=== PATIENT | female | born 1950 | race Caucasian/White ===

== ENCOUNTER → 2016-08-07 | Outpatient (CLI) | payer MEDICARE, OTHER ==
[~2016-08-07] MED LIST: AMBIEN 10MG10 MG PO; FLONASE NASAL S16 GM NS; LEVAQUIN 5500 MG/TA1 PO; MIRALAX PA17 GM/Dose PO; NORCO 325 MG-51 TAB PO; PREDNISONE20 MG PO; PROTONIX 40MG T40 MG PO; RT ADVAIR 228 DISKUS IH; SINGULAIR 110 MG/TAB PO; SYNTHROID0.112 MG/T PO; VENTOLIN0.09 MG IH
== END ==
LOC: MC.RAD 08:10
DX: N63 Unspecified lump in breast (principal)

== ENCOUNTER → 2017-01-20 | Outpatient (CLI) | payer MEDICARE, OTHER | LOC: MC.RAD 14:12 | DX: Z12.31 Encounter for screening mammogram for malignant neoplasm of breast (principal) ==

== ENCOUNTER → 2017-05-18 | Outpatient (CLI) | payer MEDICARE, OTHER ==
[2017-05-18 12:07] LABS: HEMATOCRIT 38.8 % (37.0-47.0); HEMOGLOBIN 13.2 g/dl (12.5-16.0); MEAN CELL VOLUME 99 fl (80.0-100.0); MEAN CORPUSCULAR HEMOGLOBIN 34 pg (27.0-31.0); MEAN CORPUSCULAR HGB CONC 34 g/dl (33.0-37.0); MEAN PLATELET VOLUME 10.1 fl (7.4-10.4); PLATELET COUNT 235 K/mm3 (130-400); RED BLOOD COUNT 3.94 M/mm3 (4.10-5.30); REDCELL DISTRIBUTION WIDTH-CV 12.4 % (11.5-14.5)
[2017-05-18 12:27] LABS: ERYTHROCYTE SEDIMENTATION RATE 5 mm/hr (0-30)
== END ==
LOC: COL.LAB 10:32
PROVIDERS: Orthopaedic Surgery
DX: M25.562 Pain in left knee (principal); Z96.652 Presence of left artificial knee joint

== ENCOUNTER → 2017-06-04 | Outpatient (CLI) | payer MEDICARE | LOC: COL.RAD 12:39 | DX: M25.552 Pain in left hip (principal); M25.551 Pain in right hip; M54.5 Low back pain | CPT/HCPCS: G0260; J3301 ==

== ENCOUNTER → 2017-06-18 | Outpatient (CLI) | payer MEDICARE | LOC: COL.RAD 12:22 | DX: M54.5 Low back pain (principal) | CPT/HCPCS: G0260; J3301 ==

== ENCOUNTER → 2017-09-04 | Outpatient (CLI) | payer MEDICARE | LOC: COL.RAD 07:07 | DX: M25.551 Pain in right hip (principal); M25.552 Pain in left hip; M54.5 Low back pain | CPT/HCPCS: G0260; J3301 ==

== ENCOUNTER 2017-10-02 14:00 | Outpatient (RCR) | payer MEDICARE, OTHER | END 2017-10-04 | disposition home or self-care (01) | LOC: WSPT | DX: Z47.1 Aftercare following joint replacement surgery (principal); Z96.651 Presence of right artificial knee joint | CPT/HCPCS: G0283-GP; G8978-GP; G8979-GP ==

== ENCOUNTER 2017-10-09 14:00 | Outpatient (RCR) | payer MEDICARE, OTHER ==
[~2017-10-09 14:00] MED LIST changes: -FLONASE NASAL S16 GM NS; +FLONASEALLERGY NS
[2017-10-12] MEDS ORDERED: LOTENSIN HCT 201 TA1 PO (11:39)
[2017-10-12] MEDS ORDERED: LASIX 20MG TABL20 MG PO (11:39)
[2017-10-12] MEDS ORDERED: D-2000 90 MG-201 TAB PO (11:40)
[2017-10-12] MEDS ORDERED: FOLIC ACID 40400 MCG PO (11:41)
[2017-10-12] MEDS ORDERED: MULTI VITAMINS1 TAB PO (11:41)
[2017-10-12] MEDS ORDERED: VITAMINC1000TA PO (11:42)
[2017-10-12] MEDS ORDERED: PROFE180 MG PO (11:44)
[2017-10-12] MEDS ORDERED: DESYREL 50MG50 MG PO (11:45)
[2017-10-12] MEDS ORDERED: NATURAL MAGNES200 MG PO (12:11)
== END 2017-10-20 10:58 | disposition home or self-care (01) ==
LOC: WSPT 14:00
DX: Z47.1 Aftercare following joint replacement surgery (principal); Z96.651 Presence of right artificial knee joint

== ENCOUNTER 2017-10-12 10:26 | Day surgery (SDC) | payer MEDICARE ==
[~2017-10-12] VITALS: Ht 167.6 cm; Wt 76.1 kg
[2017-10-12] VITALS (9 sets, daily range): BP systolic 132–162; BP diastolic 50–78; PULSE 88–105; TEMP 97.4–98.5
[2017-10-12] MEDS ORDERED: LOTENSIN HCT 201 TA1 PO (11:39)
[2017-10-12] MEDS ORDERED: LASIX 20MG TABL20 MG PO (11:39)
[2017-10-12] MEDS ORDERED: D-2000 90 MG-201 TAB PO (11:40)
[2017-10-12] MEDS ORDERED: MULTI VITAMINS1 TAB PO (11:41)
[2017-10-12] MEDS ORDERED: FOLIC ACID 40400 MCG PO (11:41)
[2017-10-12] MEDS ORDERED: VITAMINC1000TA PO (11:42)
[2017-10-12] MEDS ORDERED: PROFE180 MG PO (11:44)
[2017-10-12] MEDS ORDERED: DESYREL 50MG50 MG PO (11:45)
[2017-10-12] MEDS ORDERED: NATURAL MAGNES200 MG PO (12:11)
[2017-10-13 04:13] VITALS: BP 116/53; PULSE 76; TEMP 97.9
[2017-10-13 07:59] VITALS: BP 117/54; PULSE 73; TEMP 98.1
[2017-10-13 11:30] VITALS: BP 121/51; PULSE 82; TEMP 98.3
[2017-10-13 14:56] VITALS: BP 124/53; PULSE 83; TEMP 97.9
== END 2017-10-13 16:00 | disposition home or self-care (01) ==
LOC: SDCO 10:26 → SURG 16:15 → SDCO 10-13 16:00
DX: C50.911 Malignant neoplasm of unspecified site of right female breast (principal); E03.9 Hypothyroidism, unspecified; G43.909 Migraine, unspecified, not intractable, without status migrainosus; G89.29 Other chronic pain; E78.5 Hyperlipidemia, unspecified; F32.9 Major depressive disorder, single episode, unspecified; I10 Essential (primary) hypertension; J45.909 Unspecified asthma, uncomplicated; M19.90 Unspecified osteoarthritis, unspecified site; Z17.0 Estrogen receptor positive status [ER+]; Z79.51 Long term (current) use of inhaled steroids; Z85.828 Personal history of other malignant neoplasm of skin; Z90.710 Acquired absence of both cervix and uterus; Z90.49 Acquired absence of other specified parts of digestive tract; Z96.653 Presence of artificial knee joint, bilateral; Z88.5 Allergy status to narcotic agent; Z88.8 Allergy status to other drugs, medicaments and biological substances; Z88.6 Allergy status to analgesic agent; Z80.3 Family history of malignant neoplasm of breast; Z80.0 Family history of malignant neoplasm of digestive organs; Z82.49 Family history of ischemic heart disease and other diseases of the circulatory system
CPT/HCPCS: OP; C1789; J0690; J1100; J1885; J2250; J2405; J2704; J2765; J2795; J3010; J7120

== ENCOUNTER → 2017-12-15 | Outpatient (CLI) | payer MEDICARE ==
[~2017-12-15] MED LIST changes: +CORDARONE200 MG/TAB PO; +D-2000 90 MG-201 TAB PO; +DESITIN DIAPER120 GM TP; +DESYREL 50MG50 MG PO; +FERROUS SU325 MG/TAB PO; +FLORASTOR250 MG PO; +FOLIC ACID 40400 MCG PO; +K-DUR20 MEQ PO; +LASIX 20MG TABL20 MG PO; +LOMOTIL 0.025 M1 TAB PO; +LOTENSIN HCT 201 TA1 PO; +MELATONIN5 M1 PO; +MOBIC15 MG PO; +MULTI VITAMINS1 TAB PO; +NATURAL MAGNES200 MG PO; +PROFE180 MG PO; +TOPROL XL 25MG25 MG PO; +TYLENOL 325MG325 MG PO; +VITAMINC1000TA PO; +XARELTO20 MG PO
== END ==
LOC: COL.RAD 10:08
DX: J98.4 Other disorders of lung (principal); J90 Pleural effusion, not elsewhere classified

== ENCOUNTER 2017-12-16 14:12 | Outpatient (CLI) | payer MEDICARE ==
[~2017-12-16] VITALS: Ht 167.6 cm; Wt 75.0 kg
[2017-12-16 15:00] VITALS: BP 121/61; PULSE 77; TEMP 97.7
== END 2017-12-17 06:45 | disposition home health service (06) ==
LOC: EUO 14:12
DX: Z45.2 Encounter for adjustment and management of vascular access device (principal); Z95.9 Presence of cardiac and vascular implant and graft, unspecified

== ENCOUNTER 2017-12-23 13:50 | Outpatient (RCR) | payer MEDICARE ==
[2017-12-23 14:33] VITALS: BP 128/68; PULSE 75; TEMP 97.9
== END 2017-12-23 14:34 | disposition home or self-care (01) ==
LOC: EUO 13:50 → EDSTATUS 14:00 → EUO 14:00
DX: Z45.2 Encounter for adjustment and management of vascular access device (principal); C50.411 Malignant neoplasm of upper-outer quadrant of right female breast; C50.412 Malignant neoplasm of upper-outer quadrant of left female breast; Z17.0 Estrogen receptor positive status [ER+]

== ENCOUNTER 2017-12-31 16:44 | Emergency (ER) | payer MEDICARE ==
[~2017-12-31] VITALS: Ht 167.6 cm; Wt 76.4 kg
[2017-12-31 16:49] VITALS: TEMP 98
[2017-12-31 17:38] LABS: BASO # 0.1 (0.0-0.2); BASO % 0.8 % (0.0-2.0); EOS # 0.1 (0.0-0.7); EOS % 1.5 % (0-4.0); GRAN # 4.8 (1.4-6.5); GRAN % 62.1 % (42.2-75.2); HEMATOCRIT 38.8 % (37.0-47.0); LYMPH # 2.3 (1.2-3.4); LYMPH % 29.5 % (20.0-51.0); MEAN CELL VOLUME 100 fl (80.0-100.0); MEAN CORPUSCULAR HEMOGLOBIN 33 pg (27.0-31.0); MEAN CORPUSCULAR HGB CONC 34 g/dl (33.0-37.0); MEAN PLATELET VOLUME 10.2 fl (7.4-10.4); MONO # 0.5 (0.1-0.6); MONO % 5.8 % (1.7-9.3); PLATELET COUNT 276 K/mm3 (130-400); RED BLOOD COUNT 3.89 M/mm3 (4.10-5.30); REDCELL DISTRIBUTION WIDTH-CV 13.1 % (11.5-14.5)
[2017-12-31 17:46] LABS: ALBUMIN 4.4 gm/dL (3.5-5.0); BILIRUBIN,TOTAL 0.4 mg/dL (0.0-1.0); C-REACTIVE PROTEIN 0.7 mg/dL (0.0-0.9); CALCIUM 9.3 mg/dL (8.4-10.2); CREATININE, serum 0.99 mg/dL (0.52-1.25); POTASSIUM 3.4 mmol/L (3.4-5.0); TOTAL PROTEIN 7.8 gm/dL (6.4-8.2)
[2017-12-31 17:56] LABS: ERYTHROCYTE SEDIMENTATION RATE 32 mm/hr (0-30)
[2017-12-31] MEDS ORDERED: DOXYCYCLINE 10100 MG PO (18:14)
[2017-12-31] MEDS ORDERED: ARIMIDEX1 MG PO (18:14)
[2017-12-31 19:37] VITALS: BP 151/81; PULSE 80
== END 2017-12-31 19:38 | disposition home or self-care (01) ==
LOC: COL.ER 16:44
PROVIDERS: Emergency Medicine
DX: L03.313 Cellulitis of chest wall (principal); I48.91 Unspecified atrial fibrillation; I10 Essential (primary) hypertension; E03.9 Hypothyroidism, unspecified; Z85.3 Personal history of malignant neoplasm of breast; Z79.899 Other long term (current) drug therapy

== ENCOUNTER → 2018-02-03 | Outpatient (CLI) | payer MEDICARE ==
[~2018-02-03] MED LIST changes: +ARIMIDEX1 MG PO; +DOXYCYCLINE 10100 MG PO
== END ==
LOC: MHCPAIN 13:09
DX: G89.29 Other chronic pain (principal); M47.817 Spondylosis without myelopathy or radiculopathy, lumbosacral region; M54.16 Radiculopathy, lumbar region; M53.3 Sacrococcygeal disorders, not elsewhere classified
CPT/HCPCS: G0463

== ENCOUNTER → 2018-03-31 | Outpatient (CLI) | payer MEDICARE | LOC: MHCPAIN 13:24 | DX: G89.29 Other chronic pain (principal); M47.817 Spondylosis without myelopathy or radiculopathy, lumbosacral region; M54.16 Radiculopathy, lumbar region; M53.3 Sacrococcygeal disorders, not elsewhere classified | CPT/HCPCS: G0463 ==

== ENCOUNTER 2018-04-09 14:15 | Outpatient (RCR) | payer MEDICARE | END 2018-04-12 | disposition home or self-care (01) | LOC: WSPT | DX: M25.562 Pain in left knee (principal); M25.561 Pain in right knee; Z96.653 Presence of artificial knee joint, bilateral; Z90.13 Acquired absence of bilateral breasts and nipples; Z85.3 Personal history of malignant neoplasm of breast | CPT/HCPCS: G8978-GP; G8979-GP; G8980-GP; G8982-GP ==

== ENCOUNTER → 2018-04-15 | Outpatient (CLI) | payer MEDICARE | LOC: MHCPAIN 09:39 | DX: M47.817 Spondylosis without myelopathy or radiculopathy, lumbosacral region (principal); M54.16 Radiculopathy, lumbar region | CPT/HCPCS: J1100; Q9967 ==

== ENCOUNTER → 2018-04-28 | Outpatient (CLI) | payer MEDICARE | LOC: MHCPAIN 13:57 | DX: G89.29 Other chronic pain (principal); M47.817 Spondylosis without myelopathy or radiculopathy, lumbosacral region; M54.16 Radiculopathy, lumbar region; M53.3 Sacrococcygeal disorders, not elsewhere classified | CPT/HCPCS: G0463 ==

== ENCOUNTER → 2018-05-27 | Outpatient (CLI) | payer MEDICARE | LOC: MHCPAIN 14:17 | DX: M47.817 Spondylosis without myelopathy or radiculopathy, lumbosacral region (principal); M54.16 Radiculopathy, lumbar region ==

== ENCOUNTER → 2018-06-02 | Outpatient (CLI) | payer MEDICARE | LOC: MHCPAIN 13:44 | DX: G89.29 Other chronic pain (principal); M47.817 Spondylosis without myelopathy or radiculopathy, lumbosacral region; M53.3 Sacrococcygeal disorders, not elsewhere classified | CPT/HCPCS: G0463 ==

== ENCOUNTER → 2018-06-24 | Outpatient (CLI) | payer MEDICARE | LOC: MHCPAIN 13:47 | DX: M47.817 Spondylosis without myelopathy or radiculopathy, lumbosacral region (principal); M54.16 Radiculopathy, lumbar region ==

== ENCOUNTER → 2018-07-12 | Outpatient (CLI) | payer MEDICARE | LOC: MHCPAIN 10:34 | DX: M47.817 Spondylosis without myelopathy or radiculopathy, lumbosacral region (principal); M53.3 Sacrococcygeal disorders, not elsewhere classified; G89.29 Other chronic pain | CPT/HCPCS: G0463; J1100; J2250; J3010 ==

== ENCOUNTER → 2018-07-19 | Outpatient (CLI) | payer MEDICARE | LOC: MHCPAIN 10:38 | DX: M47.817 Spondylosis without myelopathy or radiculopathy, lumbosacral region (principal); M54.16 Radiculopathy, lumbar region | CPT/HCPCS: J1100; J2250; J3010 ==

== ENCOUNTER → 2018-08-18 | Outpatient (CLI) | payer MEDICARE | LOC: MHCPAIN 04-29 15:22 | DX: G89.29 Other chronic pain (principal); M47.817 Spondylosis without myelopathy or radiculopathy, lumbosacral region; M54.16 Radiculopathy, lumbar region; M53.3 Sacrococcygeal disorders, not elsewhere classified; M48.061 Spinal stenosis, lumbar region without neurogenic claudication | CPT/HCPCS: G0463 ==

== ENCOUNTER → 2018-08-19 | Outpatient (CLI) | payer MEDICARE | LOC: MHCPAIN 04-01 14:25 | DX: M53.3 Sacrococcygeal disorders, not elsewhere classified (principal) | CPT/HCPCS: G0260; J1040; Q9967 ==

== ENCOUNTER → 2018-09-01 | Outpatient (CLI) | payer MEDICARE | LOC: MHCPAIN 14:11 | DX: G89.29 Other chronic pain (principal); M47.817 Spondylosis without myelopathy or radiculopathy, lumbosacral region; M54.16 Radiculopathy, lumbar region; M53.3 Sacrococcygeal disorders, not elsewhere classified; M48.061 Spinal stenosis, lumbar region without neurogenic claudication | CPT/HCPCS: G0463 ==

== ENCOUNTER → 2018-09-02 | Outpatient (CLI) | payer MEDICARE | LOC: MHCPAIN 10:20 | DX: M47.817 Spondylosis without myelopathy or radiculopathy, lumbosacral region (principal); M54.16 Radiculopathy, lumbar region | CPT/HCPCS: J1100; Q9967 ==

== ENCOUNTER → 2019-01-04 | Outpatient (CLI) | payer MEDICARE | LOC: MHCPAIN 14:15 | DX: G89.29 Other chronic pain (principal); M47.817 Spondylosis without myelopathy or radiculopathy, lumbosacral region; M54.16 Radiculopathy, lumbar region; M53.3 Sacrococcygeal disorders, not elsewhere classified; M48.061 Spinal stenosis, lumbar region without neurogenic claudication | CPT/HCPCS: G0463 ==

== ENCOUNTER 2019-03-14 14:30 | Outpatient (RCR) | payer MEDICARE ==
[2019-03-23] MEDS ORDERED: AMOXICILLIN 8751 TAB PO (18:18)
[2019-03-23] MEDS ORDERED: ZOFRAN ODT4 MG PO (18:18)
== END 2019-04-01 08:38 | disposition home or self-care (01) ==
LOC: WSPT 14:30
DX: M47.816 Spondylosis without myelopathy or radiculopathy, lumbar region (principal)

== ENCOUNTER 2019-03-23 15:02 | Emergency (ER) | payer MEDICARE ==
[~2019-03-23] VITALS: Ht 167.6 cm; Wt 86.4 kg
[2019-03-23 15:09] VITALS: TEMP 98.7
[2019-03-23 16:12] LABS: HEMATOCRIT 40.1 % (37.0-47.0); HEMOGLOBIN 13.1 g/dl (12.5-16.0); MEAN CELL VOLUME 100 fl (80.0-100.0); MEAN CORPUSCULAR HEMOGLOBIN 33 pg (27.0-31.0); MEAN CORPUSCULAR HGB CONC 33 g/dl (33.0-37.0); MEAN PLATELET VOLUME 9.9 fl (7.4-10.4); PLATELET COUNT 281 K/mm3 (130-400); RED BLOOD COUNT 4.03 M/mm3 (4.10-5.30); REDCELL DISTRIBUTION WIDTH-CV 12.6 % (11.5-14.5)
[2019-03-23 16:18] LABS: PROTHROMBIN TIME 11.5 SECONDS (9.7-12.8)
[2019-03-23 16:19] LABS: ALANINE AMINOTRANSFERASE 29 U/L (9-52); ALBUMIN 4.2 gm/dL (3.5-5.0); ALKALINE PHOSPHATASE 102 U/L (50-136); ANION GAP 10 mmol/L (7-16); AST,SGOT 40 U/L (15-37); BILIRUBIN,TOTAL 0.6 mg/dL (0.0-1.0); BLOOD UREA NITROGEN 12 mg/dL (7-17); CALCIUM 9.3 mg/dL (8.4-10.2); CARBON DIOXIDE 29 mmol/L (22-30); CHLORIDE 100 mmol/L (98-107); CREATININE, serum 1.08 (0.52-1.25); GLUCOSE 101 mg/dL (74-106); POTASSIUM 3.9 mmol/L (3.4-5.0); SODIUM 139 mmol/L (137-145); TOTAL PROTEIN 7.7 gm/dL (6.4-8.2)
[2019-03-23 16:31] LABS: TROPONIN-I < 0.012 ng/mL (0.000-0.035)
[2019-03-23 16:54] LABS: BAND 4 % (0-10); EOSINOPHIL 2 % (0-4); LYMPHOCYTE 18 % (20.0-51.0); METAMYELOCYTE 1 % (0-0); MYELOCYTE 1 % (0-0); NEUTROPHILS 71 % (42.0-75.2); PLATELET ESTIMATE NORMAL (NORMAL)
[2019-03-23] MEDS ORDERED: ZOFRAN ODT4 MG PO (18:18)
[2019-03-23] MEDS ORDERED: AMOXICILLIN 8751 TAB PO (18:18)
[2019-03-23 19:33] VITALS: BP 156/76; PULSE 95
== END 2019-03-23 19:30 | disposition home or self-care (01) ==
LOC: COL.ER 15:02
PROVIDERS: Family Medicine
DX: J18.9 Pneumonia, unspecified organism (principal); I48.91 Unspecified atrial fibrillation
CPT/HCPCS: J0696; J2550; J2930; J7050; Q9967

== ENCOUNTER → 2019-04-20 | Outpatient (CLI) | payer MEDICARE ==
[~2019-04-20] MED LIST changes: +AMOXICILLIN 8751 TAB PO; +ZOFRAN ODT4 MG PO
== END ==
LOC: MHCPAIN 14:00
DX: M47.817 Spondylosis without myelopathy or radiculopathy, lumbosacral region (principal); M54.16 Radiculopathy, lumbar region
CPT/HCPCS: G0463

== ENCOUNTER → 2019-04-21 | Outpatient (CLI) | payer MEDICARE | LOC: MHCPAIN 12:41 | DX: M53.3 Sacrococcygeal disorders, not elsewhere classified (principal) | CPT/HCPCS: G0260 ==

== ENCOUNTER → 2019-04-26 | Outpatient (CLI) | payer MEDICARE | LOC: COL.RAD 13:48 | DX: J18.1 Lobar pneumonia, unspecified organism (principal); R59.0 Localized enlarged lymph nodes; Z98.82 Breast implant status; Z98.890 Other specified postprocedural states ==

== ENCOUNTER → 2019-05-04 | Outpatient (CLI) | payer MEDICARE | LOC: MHCPAIN 12:55 | DX: M47.817 Spondylosis without myelopathy or radiculopathy, lumbosacral region (principal); M53.3 Sacrococcygeal disorders, not elsewhere classified | CPT/HCPCS: G0463 ==

== ENCOUNTER → 2019-05-19 | Outpatient (CLI) | payer MEDICARE | LOC: MHCPAIN 14:05 | DX: M47.27 Other spondylosis with radiculopathy, lumbosacral region (principal) ==

== ENCOUNTER → 2019-05-30 | Outpatient (CLI) | payer MEDICARE | LOC: MHCPAIN 11:08 | DX: M47.817 Spondylosis without myelopathy or radiculopathy, lumbosacral region (principal) | CPT/HCPCS: G0463 ==

== ENCOUNTER → 2019-06-14 | Outpatient (CLI) | payer MEDICARE | LOC: COL.RAD 11:46 | DX: M43.8X6 Other specified deforming dorsopathies, lumbar region (principal); M47.816 Spondylosis without myelopathy or radiculopathy, lumbar region; M48.061 Spinal stenosis, lumbar region without neurogenic claudication ==

== ENCOUNTER → 2019-06-23 | Outpatient (CLI) | payer MEDICARE | LOC: MHCPAIN 12:30 | DX: M54.5 Low back pain (principal); M47.25 Other spondylosis with radiculopathy, thoracolumbar region; M48.061 Spinal stenosis, lumbar region without neurogenic claudication | CPT/HCPCS: G0463; J1100; Q9967 ==

== ENCOUNTER → 2020-01-24 | Outpatient (CLI) | payer MEDICARE | LOC: COL.LAB 08:09 | DX: Z01.812 Encounter for preprocedural laboratory examination (principal); Z20.828 Contact with and (suspected) exposure to other viral communicable diseases ==

== ENCOUNTER → 2020-11-08 | Outpatient (CLI) | payer MEDICARE | LOC: COL.RAD 08:29 | DX: C50.411 Malignant neoplasm of upper-outer quadrant of right female breast (principal); R59.0 Localized enlarged lymph nodes; Z90.49 Acquired absence of other specified parts of digestive tract; Z90.710 Acquired absence of both cervix and uterus; Z90.13 Acquired absence of bilateral breasts and nipples; Z98.82 Breast implant status | CPT/HCPCS: Q9967 ==